=== PATIENT | female | born 1960 | race Caucasian/White ===

== ENCOUNTER → 2016-04-13 | Outpatient (CLI) | payer MEDICAID ==
[~2016-04-13] MED LIST: ACETAMINOPHEN TAB 500 MG TAB PO ONE; LORATADINE 10 MG TAB PO ONE; SODIUM CHLORIDE 0.9% 250 ML in EMPTY BAG 1 BAG IV PRN
[2016-04-13] MEDS: SODIUM CHLORIDE 0.9% 500 ML in EMPTY BAG 1 BAG IV PRN (11:41)
[2016-04-13 11:46] VITALS: RESP 16; TEMP 98.6
[2016-04-13 12:59] VITALS: PULSE 88
[2016-04-13 13:22] VITALS: BP 120/67
== END | disposition home or self-care (01) ==
LOC: PROCWHC3 11:16
PROVIDERS: ATTEND Internal Medicine Gastroenterology
DX: K51.90 Ulcerative colitis, unspecified, without complications (principal)
CPT/HCPCS: 96361; 96413; 96415; J1745

== ENCOUNTER → 2016-05-25 | Outpatient (CLI) | payer MEDICAID ==
[~2016-05-25] MED LIST changes: +SODIUM CHLORIDE 0.9% 500 ML in EMPTY BAG 1 BAG IV PRN
[2016-05-25 12:16] VITALS: TEMP 97.8
[2016-05-25 12:46] VITALS: PULSE 69
[2016-05-25 13:15] VITALS: BP 139/78; RESP 18
[2016-05-25 13:21] LABS: Basophils # (A) 0.1 k/uL (0-0.2); Basophils % (A) 1 %; CH 29.1; CHCM 33.2; Eosinophils # (A) 0.1 k/uL (0-0.7); Eosinophils % (A) 2 %; HCT 40.9 % (34.0-46.0); HDW 2.29; HGB 13.3 gm/dL (11.4-16.0); Luc % (Auto) 3; Lymphocytes # (A) 1.6 k/uL (1.0-4.8); Lymphocytes % (A) 23 %; MCH 28.6 pg (25.0-35.0); MCHC 32.5 g/dL (31.0-37.0); Mean Platelet Volume 6.2; Monocytes # (A) 0.4 k/uL (0-1.0); Monocytes % (A) 5 %; Neutrophils # (A) 4.5 k/uL (1.3-7.7); Neutrophils % (A) 66 %; RBC 4.65 m/uL (3.80-5.40); RDW 12.8 % (11.5-15.5); WBC 6.8 k/uL (3.8-10.6); WBC (Perox) 7.11
[2016-05-25 13:50] LABS: ALT 33 U/L (9-52); AST 29 U/L (14-36); Alkaline Phosphatase 83 U/L (38-126); Anion Gap 8 mmol/L; Blood Urea Nitrogen 15 mg/dL (7-17); C Reactive Protein 7.5 mg/L (<10.0); Calcium 10.1 mg/dL (8.4-10.2); Carbon Dioxide 31 mmol/L (22-30); Chloride 104 mmol/L (98-107); Glucose 82 mg/dL (74-99); Non-African American GFR(MDRD) >60 (>60 ml/min/1.73 sqM); Potassium 4.4 mmol/L (3.5-5.1); Sodium 143 mmol/L (137-145); Total Bilirubin 0.5 mg/dL (0.2-1.3); Total Protein 8.2 g/dL (6.3-8.2)
[2016-05-25 15:15] LABS: Erythrocyte Sedimentation Rate 10 mm/hr (0-20)
== END | disposition home or self-care (01) ==
LOC: PROCWHC3 11:17
PROVIDERS: ATTEND Internal Medicine Gastroenterology
DX: K51.90 Ulcerative colitis, unspecified, without complications (principal)
CPT/HCPCS: 80053; 85652; 85025; 86140; 96413; 96415; J1745

== ENCOUNTER → 2016-06-01 | Outpatient (CLI) | payer MEDICAID ==
--- NOTE | 2016-06-04 10:14 | MM ---
Reason for exam: screening (asymptomatic). Last mammogram was performed 3 years and 9 months ago. History: Took hormonal contraceptives for 8 years beginning at age 21. Physical Findings: A clinical breast exam by your physician is recommended on an annual basis and results should be correlated with mammographic findings. MG 3D Screening Mammo W/Cad Bilateral CC and MLO view(s) were taken. Prior study comparison: August 27, 2012, bilateral digital screening mammo w/CAD. September 30, 2008, bilateral digital screening mammogram. The breast tissue is extremely dense which could obscure a lesion on mammography. Benign calcifications bilaterally. No significant changes when compared with prior studies. ASSESSMENT: Benign, BI-RAD 2 RECOMMENDATION: Routine screening mammogram of both breasts in 1 year.
== END ==
LOC: RADMAMWWP 07:27
PROVIDERS: ATTEND Obstetrics & Gynecology
DX: Z12.31 Encounter for screening mammogram for malignant neoplasm of breast (principal)
CPT/HCPCS: 77063; G0202

== ENCOUNTER → 2016-06-06 | Outpatient (CLI) | payer MEDICAID ==
[2016-06-06 11:39] LABS: Partial Thromboplastin Time 25.2 sec (22.0-30.0); Prothrombin Time 9.9 sec (9.0-12.0)
== END | disposition home or self-care (01) ==
LOC: LABWHC1 11:02
PROVIDERS: ATTEND Internal Medicine Critical Care Medicine
DX: Z01.818 Encounter for other preprocedural examination (principal)
CPT/HCPCS: 36415; 85610; 85730

== ENCOUNTER → 2016-07-11 | Outpatient (CLI) | payer MEDICAID ==
[2016-07-11 07:54] VITALS: TEMP 98.3
[2016-07-11 09:47] VITALS: BP 132/96; PULSE 76; RESP 20
== END | disposition home or self-care (01) ==
LOC: PROCWHC3 07:31
PROVIDERS: ATTEND Internal Medicine Gastroenterology
DX: K51.90 Ulcerative colitis, unspecified, without complications (principal)
CPT/HCPCS: 96413; 96415; J1745

== ENCOUNTER → 2016-08-23 | Outpatient (CLI) | payer MEDICAID ==
[2016-08-23 12:31] VITALS: TEMP 98.6
[2016-08-23 12:45] LABS: Basophils % (A) 1 %; CH 29.9; Eosinophils # (A) 0.1 k/uL (0-0.7); Eosinophils % (A) 2 %; HCT 39.8 % (34.0-46.0); HDW 2.19; HGB 13.1 gm/dL (11.4-16.0); Luc # (Auto) 0.17; Luc % (Auto) 2; Lymphocytes # (A) 1.4 k/uL (1.0-4.8); Lymphocytes % (A) 16 %; MCV 90.9 fL (80.0-100.0); Mean Platelet Volume 6.2; Monocytes # (A) 0.5 k/uL (0-1.0); Monocytes % (A) 6 %; Neutrophils # (A) 6.1 k/uL (1.3-7.7); Neutrophils % (A) 73 %; RBC 4.38 m/uL (3.80-5.40); RDW 13.9 % (11.5-15.5); WBC 8.3 k/uL (3.8-10.6); WBC (Perox) 8.44
[2016-08-23 13:10] LABS: ALT 26 U/L (9-52); AST 25 U/L (14-36); Alkaline Phosphatase 87 U/L (38-126); Anion Gap 9 mmol/L; Blood Urea Nitrogen 15 mg/dL (7-17); C Reactive Protein <5.0 mg/L (<10.0); Calcium 9.9 mg/dL (8.4-10.2); Carbon Dioxide 27 mmol/L (22-30); Chloride 104 mmol/L (98-107); Glucose 92 mg/dL (74-99); Non-African American GFR(MDRD) >60 (>60 ml/min/1.73 sqM); Potassium 4.2 mmol/L (3.5-5.1); Sodium 140 mmol/L (137-145); Total Bilirubin 0.6 mg/dL (0.2-1.3); Total Protein 7.6 g/dL (6.3-8.2)
[2016-08-23 13:26] VITALS: RESP 20
[2016-08-23 13:53] VITALS: BP 138/76; PULSE 80
[2016-08-23 14:21] LABS: Erythrocyte Sedimentation Rate 13 mm/hr (0-20)
== END | disposition home or self-care (01) ==
LOC: PROCWHC3 12:03
PROVIDERS: ATTEND Internal Medicine Gastroenterology
DX: K51.90 Ulcerative colitis, unspecified, without complications (principal)
CPT/HCPCS: 80053; 85652; 85025; 86140; 96413; 96415; J1745

== ENCOUNTER → 2016-10-04 | Outpatient (CLI) | payer MEDICAID ==
[2016-10-04 07:46] VITALS: TEMP 98.4
[2016-10-04 08:16] VITALS: RESP 18
[2016-10-04 09:06] VITALS: BP 133/66; PULSE 67
[2016-10-04 12:06] LABS: Hemoglobin A1C 5.6 % (4.2-6.1)
[2016-10-04 17:30] LABS: Sex Hormone Binding Globulin 91.2 nmol/L (18.0-166.0)
== END ==
LOC: PROCWHC3 07:20
PROVIDERS: ATTEND Internal Medicine Gastroenterology
DX: Z51.11 Encounter for antineoplastic chemotherapy (principal); K51.90 Ulcerative colitis, unspecified, without complications; R53.83 Other fatigue; E55.9 Vitamin D deficiency, unspecified; N95.1 Menopausal and female climacteric states; E34.9 Endocrine disorder, unspecified
CPT/HCPCS: 84481; 80061; 84443; 83001; 83036; 82670; 84436; 84270; 82040; 84403; 96413; 96415; 36415; J1745

== ENCOUNTER → 2016-11-15 | Outpatient (CLI) | payer MEDICAID ==
[~2016-11-15] MED LIST changes: +ACETAMINOPHEN TAB 500 MG TAB PO NR; -ACETAMINOPHEN TAB 500 MG TAB PO ONE; +LORATADINE 10 MG TAB PO NR; -LORATADINE 10 MG TAB PO ONE; -SODIUM CHLORIDE 0.9% 250 ML in EMPTY BAG 1 BAG IV PRN
[2016-11-15 11:23] VITALS: RESP 16; TEMP 99.3
[2016-11-15 11:58] LABS: Basophils # (A) 0.1 k/uL (0-0.2); Basophils % (A) 1 %; CH 29.2; CHCM 33.8; Eosinophils # (A) 0.2 k/uL (0-0.7); Eosinophils % (A) 3 %; HCT 41.2 % (34.0-46.0); HDW 2.25; HGB 14.1 gm/dL (11.4-16.0); Luc # (Auto) 0.22; Luc % (Auto) 3; Lymphocytes # (A) 1.6 k/uL (1.0-4.8); Lymphocytes % (A) 23 %; MCH 29.8 pg (25.0-35.0); MCHC 34.3 g/dL (31.0-37.0); Mean Platelet Volume 6.2; Monocytes # (A) 0.4 k/uL (0-1.0); Monocytes % (A) 6 %; Neutrophils # (A) 4.5 k/uL (1.3-7.7); Neutrophils % (A) 64 %; RBC 4.73 m/uL (3.80-5.40); RDW 13.7 % (11.5-15.5); WBC (Perox) 7.04
[2016-11-15 12:39] LABS: ALT 31 U/L (9-52); AST 25 U/L (14-36); Alkaline Phosphatase 88 U/L (38-126); Anion Gap 10 mmol/L; Blood Urea Nitrogen 20 mg/dL (7-17); C Reactive Protein <5.0 mg/L (<10.0); Calcium 9.9 mg/dL (8.4-10.2); Carbon Dioxide 28 mmol/L (22-30); Chloride 103 mmol/L (98-107); Glucose 95 mg/dL (74-99); Non-African American GFR(MDRD) >60 (>60 ml/min/1.73 sqM); Potassium 4.4 mmol/L (3.5-5.1); Sodium 141 mmol/L (137-145); Total Bilirubin 0.5 mg/dL (0.2-1.3); Total Protein 7.8 g/dL (6.3-8.2)
[2016-11-15 13:21] LABS: Erythrocyte Sedimentation Rate 15 mm/hr (0-20)
[2016-11-15 14:09] VITALS: BP 123/86; PULSE 70
== END | disposition home or self-care (01) ==
LOC: PROCWHC3 11:08
PROVIDERS: ATTEND Internal Medicine Gastroenterology
DX: K51.90 Ulcerative colitis, unspecified, without complications (principal); K51.011 Ulcerative (chronic) pancolitis with rectal bleeding
CPT/HCPCS: 80053; 85652; 85025; 86140; 87324; 83993; 96413; 96415; J1745

== ENCOUNTER → 2017-02-14 | Outpatient (CLI) | payer MEDICAID ==
[~2017-02-14] MED LIST changes: -ACETAMINOPHEN TAB 500 MG TAB PO NR; +ACETAMINOPHEN TAB 500 MG TAB PO ONE; +INFLIXIMAB-DYYB 500 MG in SODIUM CHLORIDE 0.9% 250 ML IV ONE; -LORATADINE 10 MG TAB PO NR; +LORATADINE 10 MG TAB PO ONE
[2017-02-14 12:21] VITALS: TEMP 98.3
[2017-02-14 12:47] LABS: Basophils # (A) 0.1 k/uL (0-0.2); Basophils % (A) 1 %; CH 28.9; CHCM 33.3; Eosinophils # (A) 0.1 k/uL (0-0.7); Eosinophils % (A) 1 %; HCT 41.9 % (34.0-46.0); HDW 2.27; HGB 13.8 gm/dL (11.4-16.0); Luc # (Auto) 0.19; Luc % (Auto) 3; Lymphocytes # (A) 1.5 k/uL (1.0-4.8); Lymphocytes % (A) 25 %; MCH 28.7 pg (25.0-35.0); MCV 87.1 fL (80.0-100.0); Mean Platelet Volume 5.9; Monocytes # (A) 0.4 k/uL (0-1.0); Monocytes % (A) 7 %; Neutrophils # (A) 3.9 k/uL (1.3-7.7); Neutrophils % (A) 64 %; RBC 4.82 m/uL (3.80-5.40); WBC 6.1 k/uL (3.8-10.6); WBC (Perox) 6.18
[2017-02-14 13:06] LABS: ALT 30 U/L (9-52); AST 29 U/L (14-36); Alkaline Phosphatase 64 U/L (38-126); Anion Gap 9 mmol/L; Blood Urea Nitrogen 20 mg/dL (7-17); Carbon Dioxide 28 mmol/L (22-30); Chloride 105 mmol/L (98-107); Glucose 99 mg/dL (74-99); Non-African American GFR(MDRD) 56 (>60 ml/min/1.73 sqM); Potassium 4.4 mmol/L (3.5-5.1); Sodium 142 mmol/L (137-145); Total Bilirubin 0.5 mg/dL (0.2-1.3); Total Protein 8.2 g/dL (6.3-8.2)
[2017-02-14 13:19] LABS: C Reactive Protein <5.0 mg/L (<10.0)
[2017-02-14 13:20] VITALS: RESP 16
[2017-02-14 13:34] VITALS: BP 134/75; PULSE 82
[2017-02-14 15:38] LABS: Erythrocyte Sedimentation Rate 8 mm/hr (0-20)
== END | disposition home or self-care (01) ==
LOC: PROCWHC3 11:46
PROVIDERS: ATTEND Internal Medicine Gastroenterology
DX: K51.90 Ulcerative colitis, unspecified, without complications (principal)
CPT/HCPCS: 80053; 85652; 85025; 86140; 96413; 96415; 36415; Q5102

== ENCOUNTER → 2017-03-29 | Outpatient (CLI) | payer MEDICAID ==
[2017-03-29 08:18] VITALS: RESP 16; TEMP 98
[2017-03-29 09:29] VITALS: BP 152/76; PULSE 71
== END | disposition home or self-care (01) ==
LOC: PROCWHC3 07:49
PROVIDERS: ATTEND Internal Medicine Gastroenterology
DX: K51.90 Ulcerative colitis, unspecified, without complications (principal)
CPT/HCPCS: 96365; Q5102

== ENCOUNTER → 2017-05-10 | Outpatient (CLI) | payer MEDICAID ==
[2017-05-10 07:45] VITALS: TEMP 99
[2017-05-10 08:05] LABS: HCT 40.1 % (34.0-46.0); HGB 12.4 gm/dL (11.4-16.0); MCH 27.5 pg (25.0-35.0); MCV 88.8 fL (80.0-100.0); Mean Platelet Volume 6.3; Platelet Count 397 k/uL (150-450); RBC 4.52 m/uL (3.80-5.40); RDW 13.1 % (11.5-15.5); WBC 5.9 k/uL (3.8-10.6)
[2017-05-10 08:18] LABS: ALT 26 U/L (9-52); AST 30 U/L (14-36); Albumin 4.4 g/dL (3.5-5.0); Alkaline Phosphatase 61 U/L (38-126); Anion Gap 10 mmol/L; Blood Urea Nitrogen 23 mg/dL (7-17); Calcium 9.4 mg/dL (8.4-10.2); Carbon Dioxide 26 mmol/L (22-30); Chloride 104 mmol/L (98-107); Glucose 104 mg/dL (74-99); Potassium 4.3 mmol/L (3.5-5.1); Sodium 140 mmol/L (137-145); Total Bilirubin 0.5 mg/dL (0.2-1.3); Total Protein 7.6 g/dL (6.3-8.2)
[2017-05-10 09:36] VITALS: BP 134/74; PULSE 69; RESP 18
== END ==
LOC: PROCWHC3 07:25
PROVIDERS: ATTEND Internal Medicine Gastroenterology
DX: K51.90 Ulcerative colitis, unspecified, without complications (principal)
CPT/HCPCS: 80053; 85027; 96413; 96415; 36415; Q5102; 80299

== ENCOUNTER → 2017-05-21 | Outpatient (CLI) | payer MEDICAID ==
[2017-05-21 16:06] LABS: T4, Free (Free Thyroxine) 0.74 ng/dL (0.78-2.19)
== END | disposition home or self-care (01) ==
LOC: LABWHC1 15:06
PROVIDERS: ATTEND Obstetrics & Gynecology
DX: E07.9 Disorder of thyroid, unspecified (principal); K51.00 Ulcerative (chronic) pancolitis without complications; Z78.0 Asymptomatic menopausal state
CPT/HCPCS: 36415; 82670; 83001; 83993; 84403; 84439; 84443

== ENCOUNTER → 2017-06-21 | Outpatient (CLI) | payer MEDICAID ==
[2017-06-21 08:07] VITALS: RESP 16; TEMP 97.6
[2017-06-21 10:00] VITALS: BP 113/73; PULSE 68
== END | disposition home or self-care (01) ==
LOC: PROCWHC3 07:21
PROVIDERS: ATTEND Internal Medicine Gastroenterology
DX: K51.90 Ulcerative colitis, unspecified, without complications (principal)
CPT/HCPCS: 96413; 96415; Q5103

== ENCOUNTER → 2017-08-08 | Outpatient (CLI) | payer MEDICAID ==
[~2017-08-08] MED LIST changes: -ACETAMINOPHEN TAB 500 MG TAB PO ONE; +INFLIXIMAB-DYYB 500 MG in SODIUM CHLORIDE 0.9% 250 ML IV NR; -INFLIXIMAB-DYYB 500 MG in SODIUM CHLORIDE 0.9% 250 ML IV ONE; -LORATADINE 10 MG TAB PO ONE
[2017-08-08 11:55] VITALS: RESP 16
[2017-08-08 12:11] LABS: Basophils # (A) 0.1 k/uL (0-0.2); Basophils % (A) 1 %; Eosinophils # (A) 0.2 k/uL (0-0.7); Eosinophils % (A) 3 %; HCT 38.2 % (34.0-46.0); HGB 12.9 gm/dL (11.4-16.0); Lymphocytes # (A) 1.7 k/uL (1.0-4.8); Lymphocytes % (A) 29 %; MCH 29.2 pg (25.0-35.0); MCHC 33.9 g/dL (31.0-37.0); MCV 86.1 fL (80.0-100.0); Mean Platelet Volume 6.1; Monocytes # (A) 0.4 k/uL (0-1.0); Monocytes % (A) 7 %; Neutrophils # (A) 3.3 k/uL (1.3-7.7); Neutrophils % (A) 58 %; Platelet Count 439 k/uL (150-450); RBC 4.44 m/uL (3.80-5.40); RDW 13.5 % (11.5-15.5); WBC 5.7 k/uL (3.8-10.6)
[2017-08-08 12:19] LABS: ALT 50 U/L (9-52); AST 45 U/L (14-36); Albumin 4.9 g/dL (3.5-5.0); Alkaline Phosphatase 56 U/L (38-126); Anion Gap 13 mmol/L; Bilirubin, Delta 0.2 mg/dL (0.0-0.2); Bilirubin,Unconjugated 0.3 mg/dL (0.0-1.1); Blood Urea Nitrogen 20 mg/dL (7-17); C Reactive Protein <5.0 mg/L (<10.0); Calcium 10.3 mg/dL (8.4-10.2); Carbon Dioxide 29 mmol/L (22-30); Chloride 99 mmol/L (98-107); Glucose 103 mg/dL (74-99); Sodium 141 mmol/L (137-145); Total Bilirubin 0.5 mg/dL (0.2-1.3); Total Protein 7.9 g/dL (6.3-8.2)
[2017-08-08 12:21] VITALS: PULSE 74
[2017-08-08 12:41] VITALS: BP 134/66
[2017-08-08 13:35] LABS: Creatine Kinase 199 U/L (30-135); Erythrocyte Sedimentation Rate 8 mm/hr (0-20)
[2017-08-08 16:57] LABS: Cyclic Citrullinated Pep IgG NEGATIVE (NEGATIVE)
[2017-08-08 20:07] LABS: Cholesterol 247 mg/dL (<200); HDL Cholesterol 93 mg/dL (40-60); LDL Cholesterol,Calculated 143 mg/dL (0-99); Triglycerides 54 mg/dL (<150)
== END | disposition home or self-care (01) ==
LOC: PROCWHC3 10:31
PROVIDERS: ATTEND Internal Medicine Gastroenterology
DX: E55.9 Vitamin D deficiency, unspecified (principal); K51.90 Ulcerative colitis, unspecified, without complications; Z78.0 Asymptomatic menopausal state
CPT/HCPCS: 80061; 80053; 80076; 85652; 82085; 82550; 82670; 85025; 86140; 86431; 82306; 86038; 84403; 86235; 86200; 96413; 96415; 36415; Q5103

== ENCOUNTER → 2018-01-29 | Outpatient (CLI) | payer MEDICAID ==
--- NOTE | 2018-01-30 10:54 | BD ---
EXAMINATION TYPE: Axial Bone Density DATE OF EXAM: 01/29/2018 COMPARISON: NONE CLINICAL HISTORY: post menopausal Height: 5'5 Weight: 158 FRAX RISK QUESTIONS: Secondary Osteoporosis: RISK FACTORS HISTORY OF: Diet low in dairy products/other sources of calcium: y Postmenopausal woman: y Take estrogen and/or progesterone medications: y How lon year MEDICATIONS: Additional Medications: hypertension, ulcerative colitis Additional History: EXAM MEASUREMENTS: Bone mineral densitometry was performed using the [employer] System. Bone mineral density as measured about the Lumbar spine is: ----- L1-L4(G/cm2): 1.423 T Score Values are as follows: ----- L2: 1.7 ----- L3: 2.6 ----- L4: 2.0 ----- L1-L4:2.0 Bone mineral density about the R hip (g/cm2): 1.046 Bone mineral density about the L hip (g/cm2): 1.091 T Score values are as follows: -----R Neck: 0.1 -----L Neck: 0.4 -----R Total: 1.2 -----L Total: 1.9 IMPRESSION: No evidence for osteoporosis or osteopenia NOTE: T-SCORE=SD OF THE YOUNG ADULT MEAN.
--- NOTE | 2018-01-30 13:26 | MM ---
Reason for exam: screening (asymptomatic). Last mammogram was performed 1 year and 8 months ago. History: Retro-pectoral implants in both breasts, June 2016. Took hormonal contraceptives for 8 years beginning at age 21. Taking other hormone for 1 year. MG 3D Screen Mammo Imp/Cad Bilateral CC, MLO, and ID view(s) were taken. Prior study comparison: June 01, 2016, bilateral MG 3d screening mammo w/cad. August 27, 2012, bilateral digital screening mammo w/CAD. The breast tissue is heterogeneously dense. This may lower the sensitivity of mammography. Stable benign calcification. Bilateral implants are intact. No significant new finding since most recent study. ASSESSMENT: Benign, BI-RAD 2 RECOMMENDATION: Routine screening mammogram of both breasts in 1 year.
== END ==
LOC: RADMAMWWP 15:24
PROVIDERS: ATTEND Obstetrics & Gynecology
DX: Z12.31 Encounter for screening mammogram for malignant neoplasm of breast (principal); N95.1 Menopausal and female climacteric states
CPT/HCPCS: 77063; 77067; 77080

== ENCOUNTER → 2018-11-03 | Outpatient (CLI) | payer MEDICAID ==
[2018-11-04 15:14] LABS: LOG HCV IU/mL <1.08 (<1.08)
== END | disposition home or self-care (01) ==
LOC: LABWHC1 09:02
PROVIDERS: ATTEND Internal Medicine Infectious Disease
DX: Z51.81 Encounter for therapeutic drug level monitoring (principal); Z79.899 Other long term (current) drug therapy; K51.90 Ulcerative colitis, unspecified, without complications
CPT/HCPCS: 36415; 86480; 87522

== ENCOUNTER → 2019-02-02 | Outpatient (CLI) | payer MEDICAID ==
[2019-02-02 19:01] LABS: Estradiol 79.8 pg/mL; Follicle Stimulating Hormone 23.8 mIU/mL
[2019-02-02 19:55] LABS: Hemoglobin A1C 5.4 % (4.0-6.0)
== END | disposition home or self-care (01) ==
LOC: LABWHC1 11:01
PROVIDERS: ATTEND Obstetrics & Gynecology
DX: E03.9 Hypothyroidism, unspecified (principal); E34.52 Partial androgen insensitivity syndrome; R53.83 Other fatigue; N95.1 Menopausal and female climacteric states; R61 Generalized hyperhidrosis
CPT/HCPCS: 36415; 82306; 82607; 82670; 83001; 83036; 84403; 84436; 84443; 84481

== ENCOUNTER → 2019-04-08 | Outpatient (CLI) | payer MEDICAID ==
--- NOTE | 2019-04-09 13:25 | MM ---
Reason for exam: screening (asymptomatic). Last mammogram was performed 1 year and 2 months ago. History: Patient is postmenopausal. Retro-pectoral implants in both breasts, June 2016. Took hormonal contraceptives for 8 years beginning at age 21. Taking other hormone for 1 year. Physical Findings: A clinical breast exam by your physician is recommended on an annual basis and results should be correlated with mammographic findings. MG 3D Screen Mammo Imp/Cad Bilateral CC and MLO view(s) were taken. Prior study comparison: January 29, 2018, bilateral MG 3d screen mammo imp/cad. June 01, 2016, bilateral MG 3d screening mammo w/cad. No significant changes when compared with prior studies. ASSESSMENT: Benign, BI-RAD 2 RECOMMENDATION: Routine screening mammogram of both breasts in 1 year.
== END | disposition home or self-care (01) ==
LOC: RADMAMWWP 06:56
PROVIDERS: ATTEND Obstetrics & Gynecology
DX: Z12.31 Encounter for screening mammogram for malignant neoplasm of breast (principal); Z98.82 Breast implant status
CPT/HCPCS: 77063; 77067

== ENCOUNTER 2020-05-04 09:16 | Day surgery (SDC) | payer MEDICAID ==
[2020-05-03 11:26] VITALS: BMI 25.9
[~2020-05-04 09:16] MED LIST changes: -INFLIXIMAB-DYYB 500 MG in SODIUM CHLORIDE 0.9% 250 ML IV NR; +LIDOCAINE 1% (10MG/ML) FOR IV START INTRADERMA PRN; -SODIUM CHLORIDE 0.9% 500 ML in EMPTY BAG 1 BAG IV PRN
[2020-05-04 09:51] VITALS: TEMP 98.9
[2020-05-04] MEDS ORDERED: ONDANSETRON 4 MG/2 ML VIAL IVP ONE (09:52)
[2020-05-04] MEDS ORDERED: LACTATED RINGERS 1,000 ML IV ONE (09:52)
[2020-05-04] MEDS ORDERED: ONDANSETRON 4 MG/2 ML VIAL ONE (09:54)
[2020-05-04] MEDS ORDERED: PROPOFOL 10 MG/ML 20 ML VIAL IV ONE (10:22)
--- NOTE | 2020-05-04 10:38 | P.PCN ---
Date of Procedure: 05/04/20 Procedure(s) Performed: BRIEF HISTORY: Patient is a 59-year-old pleasant white female scheduled for surveillance colonoscopy as a part of evaluation of long-standing history of ulcerative colitis diagnosed in . Currently is maintained on Entyvio and is in clinical remission.. PROCEDURE PERFORMED: Colonoscopy with random biopsies . PREOPERATIVE DIAGNOSIS: Long-standing history of ulcerative colitis IV sedation per Anesthesia. PROCEDURE: After informed consent was obtained, the patient, was brought into the endoscopy unit. IV sedation was administered by Anesthesia under continuous monitoring. Digital rectal examination was normal. Initially the Olympus CF-160 flexible video colonoscope was then inserted in the rectum, gradually advanced into the cecum without any difficulty. Careful examination was performed as the scope was gradually being withdrawn. Ileocecal valve and the appendiceal orifice were visualized and appeared normal. Prep was excellent. Mucosa of the cecum, ascending colon, transverse colon, descending colon, sigmoid colon, and rectum no evidence of active colitis or colorectal neoplasia. Random biopsies were done from the cecum to rectum at every 10 cm into well.. Retroflexion was performed in the rectum and no lesions were seen. The patient tolerated the pro cedure well. IMPRESSION: No active colitis or colorectal neoplasia Mild mucosal scarring with loss of haustrations noted in the descending colon and distal transverse colon RECOMMENDATIONS: Findings of this examination were discussed with the patient . She was advised to follow with the biopsy results. If the biopsies do not have any evidence of dysplasia, she can have a repeat colonoscopy every 1-2 years.
[2020-05-04 10:55] VITALS: BP 144/80; PULSE 71; RESP 17
== END 2020-05-04 12:00 | disposition home or self-care (01) ==
LOC: ORWHC2ENDO 09:16
PROVIDERS: ATTEND Internal Medicine Gastroenterology
DX: Z12.11 Encounter for screening for malignant neoplasm of colon (principal); K51.90 Ulcerative colitis, unspecified, without complications; I10 Essential (primary) hypertension; E07.9 Disorder of thyroid, unspecified; Z88.5 Allergy status to narcotic agent; Z79.899 Other long term (current) drug therapy; Z79.890 Hormone replacement therapy; Z98.890 Other specified postprocedural states; Z90.89 Acquired absence of other organs; Z87.898 Personal history of other specified conditions; Z84.89 Family history of other specified conditions
CPT/HCPCS: 88305; 45380; J2405; J2704

== ENCOUNTER → 2021-01-02 | Outpatient (CLI) | payer MEDICAID ==
[2021-01-02 15:08] LABS: Appearance,Urine Clear (Clear); Bilirubin,Urine Negative (Negative); Blood,Urine Negative (Negative); Color,Urine Yellow; Glucose,Urine (UA) Negative (Negative); Ketones,Urine Negative (Negative); Leukocyte Esterase,Urine Negative (Negative); Nitrite,Urine Negative (Negative); PH, Urine 6.5 (5.0-8.0); Protein,Urine Negative (Negative); Specific Gravity,Urine 1.023 (1.001-1.035); Urobilinogen,Urine <2.0 mg/dL (<2.0)
[2021-01-02 15:14] LABS: Partial Thromboplastin Time 24.4 sec (22.0-30.0); Prothrombin Time 10.4 sec (9.0-12.0)
[2021-01-02 15:15] LABS: Albumin 4.7 g/dL (3.5-5.0); Calcium 9.9 mg/dL (8.4-10.2); Potassium 4.2 mmol/L (3.5-5.1); Total Bilirubin 0.5 mg/dL (0.2-1.3); Total Protein 7.9 g/dL (6.3-8.2)
[2021-01-02 15:28] LABS: HCT 40.3 % (34.0-46.0); MCHC 32.3 g/dL (31.0-37.0); MCV 89.5 fL (80.0-100.0); Mean Platelet Volume 6.4; Platelet Count 449 k/uL (150-450); RBC 4.51 m/uL (3.80-5.40); RDW 13.7 % (11.5-15.5); WBC 9.1 k/uL (3.8-10.6)
== END | disposition home or self-care (01) ==
LOC: LABPAT 14:13
PROVIDERS: ATTEND Orthopaedic Surgery
DX: Z01.812 Encounter for preprocedural laboratory examination (principal)
CPT/HCPCS: 36415; 80053; 81003; 85027; 85610; 85730; 87070

== ENCOUNTER 2021-01-10 05:42 | Day surgery (SDC) | payer MEDICAID ==
[2021-01-05 15:25] VITALS: BMI 25.9
[~2021-01-10 05:42] MED LIST changes: +ACETAMINOPHEN TAB 500 MG TAB PO PRN; +GABAPENTIN 300 MG CAP PO PRN; -LIDOCAINE 1% (10MG/ML) FOR IV START INTRADERMA PRN; +MELOXICAM 7.5 MG TAB PO PRN; +ROPIVACAINE/EPI/CLONIDINE/KET 50 ML SYRINGE MISCELLANE PRN; +TRANEXAMIC ACID 1,000 MG in SODIUM CHLORIDE 0.9% 100 ML IVPB PRN
[2021-01-10] MEDS ORDERED: LIDOCAINE 1% (10MG/ML) FOR IV START INTRADERMA PRN (05:49)
[2021-01-10] MEDS ORDERED: DEXAMETHASONE SOD PHOSPHATE 4 MG/ML 1 ML VIAL IV ONE (05:49)
[2021-01-10] MEDS: LACTATED RINGERS 1,000 ML IV SCH ×3 (06:20→13:46)
[2021-01-10] MEDS: ONDANSETRON 4 MG/2 ML VIAL IVP ONE ×2 (06:20→12:37)
[2021-01-10] MEDS ORDERED: MIDAZOLAM 2 MG/2 ML VIAL IVP ONE (06:48)
[2021-01-10] MEDS ORDERED: MIDAZOLAM 2 MG/2 ML VIAL IV ONE (06:50)
[2021-01-10] MEDS ORDERED: HYDROmorphone 0.2 MG/1 ML SYRINGE IVP PRN (06:58)
[2021-01-10] MEDS ORDERED: HYDROmorphone 0.5 MG/0.5 ML SYRINGE IVP PRN (06:58)
[2021-01-10] MEDS ORDERED: HYDROmorphone 1 MG/ML 1 ML SYRINGE IVP PRN (06:58)
[2021-01-10] MEDS ORDERED: NALOXONE 0.4 MG/ML 1 ML VIAL IV PRN (06:58)
[2021-01-10] MEDS ORDERED: HYDROcodone/APAP 7.5-325MG 1 EACH TAB PO PRN ×2 (06:59)
[2021-01-10] MEDS ORDERED: SODIUM CHLORIDE 0.9% 1,000 ML IV SCH (07:00)
[2021-01-10] MEDS ORDERED: MIDAZOLAM 2 MG/2 ML VIAL ONE (07:03)
[2021-01-10] MEDS ORDERED: LIDOCAINE 1% INJ 10MG/ML (20 ML MDV) ONE (07:03)
[2021-01-10] MEDS ORDERED: ROCURONIUM 10 MG/ML (5 ML VIAL) IV ONE (07:03)
[2021-01-10] MEDS ORDERED: SODIUM CHLORIDE 0.9% 100 ML BAG ONE (07:03)
[2021-01-10] MEDS ORDERED: fentaNYL (PF) 50 MCG/ML 2 ML AMP ONE (07:03)
[2021-01-10] MEDS ORDERED: SUCCINYLCHOLINE CHLORIDE 100 MG/5 ML SYR IV ONE (07:03)
[2021-01-10] MEDS ORDERED: HYDROmorphone (PF) 1 MG/ML ONE (07:03)
[2021-01-10] MEDS ORDERED: PROPOFOL 10 MG/ML 20 ML VIAL IV ONE (07:03)
[2021-01-10] MEDS ORDERED: diphenhydrAMINE 50 MG/ML 1 ML VIAL ONE (07:03)
[2021-01-10] MEDS ORDERED: ROPIVACAINE 5 MG/ML 30 ML VIAL ONE (07:03)
[2021-01-10] MEDS ORDERED: TRANEXAMIC ACID 1,000 MG/10 ML VIAL ONE (07:03)
[2021-01-10] MEDS ORDERED: ePHEDrine SULFATE/0.9% NACL/PF 50 MG/5 ML SYRINGE IV ONE (07:03)
[2021-01-10] MEDS ORDERED: ceFAZolin 1,000 MG in SODIUM CHLORIDE 0.9% 1,000 ML IRRIGATION ONE (07:06)
[2021-01-10] MEDS ORDERED: LACTATED RINGERS 1,000 ML IV ONE (08:05)
--- NOTE | 2021-01-10 08:30 | P.OP ---
Date of Procedure: 01/10/21 Preoperative Diagnosis: Severe Osteoarthritis right knee Postoperative Diagnosis: Severe osteoarthritis right knee Procedure(s) Performed: Right total knee arthroplasty using [employer] patient specific guides Implants: Daina & Nephew Journey II CR Oxinium cruciate retaining femoral component size 5, right Diana & Nephew Journey nonporous tibial baseplate size 4, right Diana [employer] Nephew Journey II, XLPE CR articular insert, size10 mm, Size 3-4, right Diana [employer] Nephew Journey Rajni II resurfacing patellar component, oval, 32 mm All components were cemented using Palacos R bone cement The articulation is Oxinium on polyethylene [employer] patient specific guides Anesthesia: GETA Surgeon: Andrea Sanderson Animal Ride Attendant #1: Desiree Robison Estimated Blood Loss (ml): 25 Pathology: none sent (Bone and cartilage) Condition: stable Disposition: PACU Indications for Procedure: After failure of conservative treatment we discussed the surgical and nonsurgical treatment options at length. Patient wishes to proceed with a total knee arthroplasty. Complications specific to this procedure were discussed at length, including but not limited to infection, bleeding, stiffness, and nerve injury. Covid-19 was also discussed at length with the patient, and they are aware of the current policies and procedures. The patient was given the option of delaying surgery, but they elect to proceed knowing these risks. Patient is aware of all these complications and informed consent was obtained Operative Findings: The operative findings are consistent with severe osteoarthritis of the right knee Description of Procedure: Patient was seen in the preoperative area and the consent was reviewed and the operative site was marked with a skin marker. The patient verified the procedure and the operative site. An adductor canal pain catheter and an iPACK block was placed by anesthesia in the preoperative area. The patient was then brought to the operating room and given preoperative antibiotics intravenously. A gram of transexamic acid was given intravenously. A general anesthetic was administered by the anesthesia department. A tourniquet was placed on the upper thigh and the lower extremity was prepped with chlorhexidine and draped in usual sterile fashion. A universal timeout was then performed which confirmed the patient's name, surgical site, ALLERGIES, and consent. The lower extremity was then exsanguinated and tourniquet was inflated to 250 mmHg. A standard anterior midline approach to the knee was performed. The skin and subcutaneous tissue were sharply dissected down to the patellar tendon. A medial parapatellar arthrotomy was then performed. The knee was then extended, the patellar was everted, and the knee was again flexed. The infra-patellar fat pad was removed in order to enhance exposure. The anterior horns of both menisci were excised, and a release was performed to the posterior medial aspect of the knee. On gross visual inspection, there was complete loss of articular cartilage in the medial and patellofemoral joint spaces. There was also significant cartilage damage in the lateral compartment. There were multiple periarticular osteophytes globally about the knee. The patient specific guide was placed on the distal femur, and pinned in place. Using the patient specific guide, the distal femoral cut was performed. The cutting block was then removed and the cut was checked for symmetry. The spikes of the femoral block was then placed into the predrilled holes, and malleted into place. Two 45 mm pins were then placed into the fixation holes on the cutting block. An bora wing was then used to ensure there would be no notching with the anterior cut. The anterior condyles were cut without notching. The anterior chord cut was then performed, followed by the posterior cut, posterior chamfer cut, and the anterior chamfer cut. The collateral ligaments were protected during the entire process. The cutting block was then removed. Any remaining bone and osteophytes were removed from the femur with a Rominger. The femoral canal was plugged with autologous bone. Attention was then directed to the tibia. The remaining ACL was removed with a Ronguer, and the tibia was then gently subluxed forward with a large bent knee retractor. Any remaining menisci were excised. The posterior lateral corner was cauterized in order to coagulate the lateral geniculate artery. The patient specific guide for the tibia was then placed and was held in place with pins. Pinholes were then placed for rotation of the tibial component as well. Proximal tibia was then cut and sized. The femoral trial was placed. A narrow saw blade was then used to remove the anterior intracondylar femoral bone. The CR notch trial was then placed. The tibial trial was placed with the appropriate-sized insert. The knee was able to fully extend and flex to 130 and was stable throughout all range of motion. The knee was then extended and the patella was everted. Patella was then measured, and then using an osteotomy guide, the patella was cut at the appropriate level. The patella was then measured and drilled and the patella trial was then placed. The knee was then taken through range of motion with the patella trial and the patella tracked normally using the no thumbs technique.. The knee was then extended patella trial was then removed and the patella was everted. Knee was then flexed and lug holes were drilled through the femoral trial and the femoral trial was then removed. The tibial was then re-exposed, and the tibial broach guide was then pinned in place after it was set for the appropriate rotation to allow for the most coverage without overhang. The tibia was then reamed and broached. The cut surfaces of bone were then irrigated with pulsatile lavage. The knee was also irrigated with Irrisept solution. The components were then opened, the cement was mixed, and the components were then cemented in place. The cement was allowed to harden with the knee in full extension. After the cemented hardened. The tourniquet was released, and hemostasis was obtained. A second gram of transexamic acid was given intravenously. The knee was again irrigated. The knee was again taken through range of motion and found to be stable throughout all range of motion of 0-130, and the patella tracked normally. The fascia was then closed with 0 Vicryl followed by #2 strata fix suture. The subcutaneous tissue was closed with 3-0 Vicryl and 3-0 strata fix. Exofin glue was used for the skin and placed with the knee in flexion. After the glue had dried, and Optafoam silver impregnated dressing was applied. The patient was then transferred to recovery room in stable condition. The marketing operations assistant TRACEY Rockwell was required due the complexity surgery and the need for a skilled cleaner assistant. She assisted in positioning, draping, retraction, and closure of the wound.
[2021-01-10] MEDS ORDERED: ROPIVACAINE 0.2%-NS ON-Q PUMP 1,090 MG, EMPTY PAIN BALL 1 EACH MISCELLANE PRN (08:44)
[2021-01-10] MEDS: HYDROmorphone 0.5 MG/0.5 ML SYRINGE IVP PRN ×2 (08:55→09:11)
[2021-01-10 09:04] VITALS: TEMP 97.5
--- NOTE | 2021-01-10 09:57 | XR ---
EXAMINATION TYPE: XR knee limited RT DATE OF EXAM: 01/10/2021 CLINICAL HISTORY: Right knee pain and arthritis status post total knee replacement. TECHNIQUE: Portable AP and crosstable lateral views of the right knee are obtained immediately posto peratively. COMPARISON: None FINDINGS: Metallic hardware from total right knee arthroplasty is seen and appears satisfactory in a lignment and position. There is evidence of recent surgery with diffuse subcutaneous gas and soft ti ssue swelling noted. IMPRESSION: METALLIC HARDWARE FROM TOTAL RIGHT KNEE ARTHROPLASTY IS SATISFACTORY IN ALIGNMENT.
--- NOTE | 2021-01-10 10:11 | P.ANPRN ---
Procedure Note - Anesthesia - Nerve Block Performed Right Adductor Canal Infusion Time Out Performed: Yes (6:47) Date of Procedure: 01/10/21 Procedure Start Time: :47 Procedure Stop Time: 06:55 Location of Patient: PreOp Indication: Acute Post-Operative Pain, Analgesia, Dx/Pain Location (Right Knee), Requested by Surgeon Specifically requested for management of pain by : Andrea Sanderson Sedation Type: Sedate with meaningful contact maintained Preparation: Sterile Prep, Sterile Dressing Position: Supine Catheter: Indwelling Needle Types: Pajunk Needle Gauge: 18 Ultrasound used to visualize needle placement: Yes Ultrasound used to observe medication spread: Yes
--- NOTE | 2021-01-10 10:13 | P.ANPRN ---
Procedure Note - Anesthesia - Nerve Block Performed Right iPack Single Time Out Performed: Yes (6:47) Date of Procedure: 01/10/21 Procedure Start Time: 06:56 Procedure Stop Time: 06:59 Location of Patient: PreOp Indication: Acute Post-Operative Pain, Requested by Surgeon Specifically requested for management of pain by DrDmitri: Andrea Sanderson Sedation Type: Sedate with meaningful contact maintained Preparation: Sterile Prep Position: Supine Catheter: None Needle Types: Pajunk Needle Gauge: 21 Ultrasound used to visualize needle placement: Yes Ultrasound used to observe medication spread: Yes Injectate: 0.5% Ropivacaine (see comment for volume) (20cc of Ropivicaine 0.25%) Blood Aspirated: No Pain Paresthesia on Injection Noted: No Resistance on Injection: Normal Image Stored and Saved: Yes Events: Uneventful and Well Tolerated
[2021-01-10] MEDS: fentaNYL (PF) 50 MCG/ML 2 ML AMP ONE ×2 (10:32→10:45)
[2021-01-10 11:42] VITALS: BP 146/63; PULSE 71; RESP 16
[2021-01-10] MEDS ORDERED: ONDANSETRON 4 MG/2 ML VIAL ONE (12:34)
== END 2021-01-10 14:09 | disposition home health service (06) ==
LOC: OR 05:42
PROVIDERS: ATTEND Orthopaedic Surgery
DX: M17.11 Unilateral primary osteoarthritis, right knee (principal); I10 Essential (primary) hypertension; E03.9 Hypothyroidism, unspecified; K51.90 Ulcerative colitis, unspecified, without complications; Z97.3 Presence of spectacles and contact lenses; Z82.49 Family history of ischemic heart disease and other diseases of the circulatory system; Z87.891 Personal history of nicotine dependence; Z79.890 Hormone replacement therapy; Z79.899 Other long term (current) drug therapy; Z79.1 Long term (current) use of non-steroidal anti-inflammatories (NSAID)
CPT/HCPCS: 97116; 97161; 64999; 64448; 76942; 73560; 27447; C1713; C1776; J2250; J1200; J1100; J0690 ×2; J2405; J2001; J3010; J1170 ×2; J2795 ×2; J0330; J2704; 88300

== ENCOUNTER → 2021-02-20 | Outpatient (CLI) | payer MEDICAID ==
--- NOTE | 2021-02-21 14:22 | MM ---
Reason for exam: screening (asymptomatic). Last mammogram was performed 1 year and 10 months ago. History: Patient is postmenopausal. Family history of breast cancer in sister at age 50. Retro-pectoral implants in both breasts, June 2016. Took hormonal contraceptives for 8 years beginning at age 21. Took estrogen for 3 years. Taking other hormone for 1 year. Physical Findings: A clinical breast exam by your physician is recommended on an annual basis and results should be correlated with mammographic findings. MG 3D Screen Mammo Imp/Cad Bilateral CC, MLO, and ID view(s) were taken. Prior study comparison: April 08, 2019, bilateral MG 3d screen mammo imp/cad. January 29, 2018, bilateral MG 3d screen mammo imp/cad. There are scattered fibroglandular densities. Bilateral breast prothesis. No significant changes when compared with prior studies. ASSESSMENT: Benign, BI-RAD 2 RECOMMENDATION: Routine screening mammogram of both breasts in 1 year.
== END | disposition home or self-care (01) ==
LOC: RADMAMWWP 15:30
PROVIDERS: ATTEND Obstetrics & Gynecology
DX: Z12.31 Encounter for screening mammogram for malignant neoplasm of breast (principal); Z80.3 Family history of malignant neoplasm of breast; Z78.0 Asymptomatic menopausal state
CPT/HCPCS: 77063; 77067

== ENCOUNTER 2021-04-14 14:59 | Day surgery (SDC) | payer MEDICAID ==
[2021-04-13 12:20] VITALS: BMI 26.4
[~2021-04-14 14:59] MED LIST changes: -ACETAMINOPHEN TAB 500 MG TAB PO PRN; -GABAPENTIN 300 MG CAP PO PRN; -MELOXICAM 7.5 MG TAB PO PRN; +Pre Op ABX Message 1 EACH MISC MISCELLANE ONE; -ROPIVACAINE/EPI/CLONIDINE/KET 50 ML SYRINGE MISCELLANE PRN; -TRANEXAMIC ACID 1,000 MG in SODIUM CHLORIDE 0.9% 100 ML IVPB PRN
[2021-04-14] MEDS ORDERED: LACTATED RINGERS 1,000 ML IV ONE (15:24)
[2021-04-14] MEDS ORDERED: ONDANSETRON 4 MG/2 ML VIAL ONE (15:26)
[2021-04-14 15:39] VITALS: TEMP 98.9
[2021-04-14] MEDS ORDERED: MIDAZOLAM 2 MG/2 ML VIAL IVP ONE (15:42)
[2021-04-14] MEDS ORDERED: fentaNYL (PF) 50 MCG/ML 2 ML AMP IVP ONE (15:43)
[2021-04-14] MEDS ORDERED: DEXAMETHASONE SOD PHOSPHATE 4 MG/ML 1 ML VIAL IVP ONE (16:01)
[2021-04-14] MEDS ORDERED: ROPIVACAINE 5 MG/ML 30 ML VIAL ONE (16:15)
[2021-04-14] MEDS ORDERED: SODIUM CHLORIDE 0.9% (PF) 10 ML VIAL ONE (16:15)
[2021-04-14] MEDS ORDERED: LIDOCAINE 1% INJ 10MG/ML (20 ML MDV) ONE (16:15)
[2021-04-14] MEDS ORDERED: KETOROLAC 15 MG/ML 1 ML VIAL ONE (16:15)
[2021-04-14] MEDS ORDERED: PROPOFOL 10 MG/ML 20 ML VIAL IV ONE (16:15)
[2021-04-14] MEDS ORDERED: HYDROmorphone (PF) 1 MG/ML ONE (16:15)
[2021-04-14] MEDS ORDERED: methylPREDNISolone ACETATE 80 MG/ML 1 ML VIAL INTRAARTIC ONE (16:32)
[2021-04-14] MEDS ORDERED: BUPIVACAINE (PF) 0.25% 30 ML VIAL INTRAARTIC ONE (16:32)
--- NOTE | 2021-04-14 16:41 | P.OP ---
Date of Procedure: 04/14/21 Preoperative Diagnosis: Arthrofibrosis status post right total knee Postoperative Diagnosis: Arthrofibrosis status post right total knee Procedure(s) Performed: 1. Manipulation under anesthesia right knee 2. Intra-articular cortisone injection Anesthesia: ZIA Surgeon: Andrea Sanderson Estimated Blood Loss (ml): 0 Pathology: none sent Condition: stable Disposition: PACU Indications for Procedure: This is a 60-year-old female that has had a right total knee arthroplasty [facility] approximately 3 months ago. She's developed arthrofibrosis despite aggressive physical therapy. After discussing the surgical and nonsurgical treatment options with her at length I've recommended manipulation under anesthesia with an intra-articular cortisone injection. Informed consent was obtained. Operative Findings: The operative findings are consistent with arthrofibrosis of the right knee Description of Procedure: The patient was seen and evaluated in the host operative area. The operative site was marked with a skin marker. An abductor canal block as well as I packed block was performed by anesthesia. A timeout was then performed confirming the patient's name surgical site ALLERGIES and consent. A sedate him anesthetic was administered by the anesthesia department. The right knee was then examined under anesthesia. There was found to have full extension and flexion was limited to 105. A gentle manipulation was then performed, with multiple lesions felt to be released. Final flexion was 135. The lateral aspect of the knee was then sterilely prepped with chlorhexidine solution. 80 mg of Depo-Medrol and 2 mL of quarter percent plain Marcaine were injected sterilely into the right knee. Patient was then transported recovery room in stable condition.
[2021-04-14] MEDS ORDERED: traMADol 50 MG TAB PO ONE (17:10)
[2021-04-14 17:14] VITALS: RESP 16
[2021-04-14] MEDS ORDERED: traMADol 50 MG TAB ONE (17:16)
[2021-04-14 17:20] VITALS: BP 162/69; PULSE 81
--- NOTE | 2021-04-14 17:33 | P.ANPRN ---
Procedure Note - Anesthesia - Nerve Block Performed Right Adductor Canal Time Out Performed: Yes (15:42) Date of Procedure: 04/14/21 Procedure Start Time: : Procedure Stop Time: 15: Location of Patient: PreOp Indication: Acute Post-Operative Pain, Requested by Surgeon (Dr Andrea Sanderson) Sedation Type: Sedate with meaningful contact maintained Preparation: Sterile Prep Position: Supine Catheter: None Needle Types: Pajunk Needle Gauge: 21 Ultrasound used to visualize needle placement: Yes Ultrasound used to observe medication spread: Yes Injectate: 0.5% Ropivacaine (see comment for volume) (15cc) Blood Aspirated: No Pain Paresthesia on Injection Noted: No Resistance on Injection: Normal Image Stored and Saved: Yes Events: Uneventful and Well Tolerated
--- NOTE | 2021-04-14 17:35 | P.ANPRN ---
Procedure Note - Anesthesia - Nerve Block Performed Right iPack Time Out Performed: Yes Date of Procedure: 04/14/21 Procedure Start Time: 15:53 Procedure Stop Time: 16:02 Location of Patient: PreOp Indication: Acute Post-Operative Pain, Requested by Surgeon (Dr Andrea Sanderson) Sedation Type: Sedate with meaningful contact maintained Preparation: Sterile Prep Position: Supine Catheter: None Needle Types: Pajunk Needle Gauge: 21 Ultrasound used to visualize needle placement: Yes Ultrasound used to observe medication spread: Yes Injectate: 0.5% Ropivacaine (see comment for volume) (15cc + 5cc PF Normal saline) Blood Aspirated: No Pain Paresthesia on Injection Noted: No Resistance on Injection: Normal Image Stored and Saved: Yes Events: Uneventful and Well Tolerated
== END 2021-04-14 17:40 | disposition home or self-care (01) ==
LOC: OR 14:59
PROVIDERS: ATTEND Orthopaedic Surgery
DX: M24.661 Ankylosis, right knee (principal); Z96.653 Presence of artificial knee joint, bilateral
CPT/HCPCS: 27570; 64447; 64999; 76942; J2250; J1040; J1100; J2405; J2001; J3010; J1170; J2795; J1885; J2704

== ENCOUNTER → 2021-09-20 | Outpatient (CLI) | payer MEDICAID ==
[2021-09-20 23:24] LABS: Immunoglobulin E 7.69 IU/mL (0.00-114.00); Immunoglobulin E 7.88 IU/mL (0.00-114.00)
[2021-09-21 00:06] LABS: C Reactive Protein <0.30 mg/dL (0.00-0.80); Rheumatoid Factor, Qnt <10 IU/mL (0-15)
[2021-09-21 01:07] LABS: Anti-Smith Ab Interp NEGATIVE (NEGATIVE); DNA Double-Stranded NEGATIVE (NEGATIVE)
[2021-09-21 16:43] LABS: Alternaria alternata IgE <0.10 kU/L; Aspergillus fumagatus IgE <0.10 kU/L; Birch IgE <0.10 kU/L; Cat Epith & Dander IgE <0.10 kU/L; Cladosporian herbarum IgE <0.10 kU/L; Clam IgE <0.10 kU/L; Cockroach IgE <0.10 kU/L; Codfish IgE <0.10 kU/L; Dermato. farinae IgE <0.10 kU/L; Dog Dander IgE <0.10 kU/L; Egg White IgE <0.10 kU/L; Elm IgE <0.10 kU/L; Maple (Box Elder) IgE <0.10 kU/L; Oak IgE <0.10 kU/L; Peanut IgE <0.10 kU/L; Ragweed,Common IgE 0.47 kU/L; Red Top (Bentgrass) IgE 4.53 kU/L; Scallop IgE <0.10 kU/L; Shrimp IgE <0.10 kU/L; Soybean IgE <0.10 kU/L; Walnut IgE (Food) <0.10 kU/L
== END | disposition home or self-care (01) ==
LOC: LABWHC1 15:43
PROVIDERS: ATTEND Internal Medicine Critical Care Medicine
DX: I10 Essential (primary) hypertension (principal); E03.9 Hypothyroidism, unspecified; K51.90 Ulcerative colitis, unspecified, without complications
CPT/HCPCS: 36415; 82784; 82785; 85652; 86003; 86038; 86140; 86225; 86235; 86431

== ENCOUNTER → 2023-01-21 | Outpatient (CLI) | payer MEDICAID ==
--- NOTE | 2023-01-22 18:39 | MM ---
Reason for Exam: Screening (asymptomatic). Last mammogram was performed 1 year(s) and 11 month(s) ago. Patient History: Menarche at age 13. First Full-Term at age 29. Postmenopausal. Patient used Estrogen for 3 years. Hormonal Contraceptives for 8 years from age 21 until age 35. 06/2016, Bilateral Implants. Sister had breast cancer, age 50. Sister tested for BRCA1 outcome was negative. Risk Values: Cande 5 year model risk: 3.0%. NCI Lifetime model risk: 13.2%. Prior Study Comparison: 01/29/2018 Bilateral Screening Mammogram, [facility]. 04/08/2019 Bilateral Screening Mammogram, [facility]. 02/20/2021 Bilateral Screening Mammogram, [facility]. Tissue Density: The breast tissue is heterogeneously dense. This may lower the sensitivity of mammography. Findings: Analyzed By CAD. Bilateral retropectoral silicone implants. There is an area of nodular focal asymmetry upper inner quadrant left breast middle depth which appears more defined. This may represent superimposition shadow but further evaluation is recommended. Otherwise, no significant change. Overall Assessment: Incomplete: need additional imaging evaluation, BI-RAD 0 Management: Special View Mammogram of the left breast. Diagnostic Breast Ultrasound of the left breast. Additional views to include spot 3-D CC, 3-D CC rolled lateral, spot 3-D MLO, and 3-D LM views. Targeted left breast ultrasound if any persisting abnormality. [facility] will attempt to contact patient to return for supplemental views and ultrasound if indicated. Electronically signed and approved by: Ashley Rodriguez M.D. Radiologist
== END | disposition home or self-care (01) ==
LOC: RADMAMWWP 14:34
PROVIDERS: ATTEND Obstetrics & Gynecology
DX: Z12.31 Encounter for screening mammogram for malignant neoplasm of breast (principal); Z78.0 Asymptomatic menopausal state; Z80.3 Family history of malignant neoplasm of breast; Z98.82 Breast implant status
CPT/HCPCS: 77063; 77067

== ENCOUNTER → 2023-01-24 | Outpatient (CLI) | payer MEDICAID | END | disposition home or self-care (01) | LOC: RADUSWWP 13:57 | PROVIDERS: ATTEND Obstetrics & Gynecology | DX: Z53.9 Procedure and treatment not carried out, unspecified reason (principal) ==

== ENCOUNTER → 2023-01-24 | Outpatient (CLI) | payer MEDICAID ==
--- NOTE | 2023-01-24 14:44 | MM ---
Reason for Exam: Additional evaluation requested from abnormal screening. Last screening mammogram was performed less than 1 month ago. Patient History: Menarche at age 13. First Full-Term at age 29. Postmenopausal. Patient used Estrogen for 3 years. Hormonal Contraceptives for 8 years from age 21 until age 35. 06/2016, Bilateral Implants. Sister had breast cancer, age 50. Sister tested for BRCA1 outcome was negative. Risk Values: Cande 5 year model risk: 3.0%. NCI Lifetime model risk: 13.2%. Prior Study Comparison: 04/08/2019 Bilateral Screening Mammogram, [facility]. 02/20/2021 Bilateral Screening Mammogram, [facility]. 01/21/2023 Bilateral MG 3D screen mammo imp/cad., [facility]. Tissue Density: Left: There are scattered fibroglandular densities. Findings: Analyzed By CAD. The area of concern involving the left breast best appreciated on MLO implant displaced views compresses out on spot compression 3-D imaging. No new suspicious masses, calcifications or distortions.The area of concern involving the left breast best appreciated on MLO implant displaced views compresses out on spot compression 3-D imaging. No new suspicious masses, calcifications or distortions. Left breast implant appears intact. Overall Assessment: Benign, BI-RAD 2 Management: Screening Mammogram of both breasts in 1 year. Results were given to the patient verbally at the time of exam. Patient should continue monthly self-breast exams. A clinical breast exam by your physician is recommended on an annual basis. This exam should not preclude additional follow-up of suspicious palpable abnormalities. Note on Cande scores and lifetime risk: 1. A Cande score greater than 3% is considered moderate risk. If this is the case, consider specialist referral to assess eligibility for a risk reducing agent. 2. If overall lifetime risk for the development of breast cancer is 20% or higher, the patient may qualify for future screening with alternating mammogram and breast MRI. Electronically signed and approved by: Sincere Tomlinson DO
== END | disposition home or self-care (01) ==
LOC: RADMAMWWP 13:54
PROVIDERS: ATTEND Obstetrics & Gynecology
DX: R92.322 Mammographic fibroglandular density, left breast (principal); Z78.0 Asymptomatic menopausal state; Z80.3 Family history of malignant neoplasm of breast; Z85.3 Personal history of malignant neoplasm of breast
CPT/HCPCS: 77061; 77065

== ENCOUNTER → 2023-01-24 | Outpatient (CLI) | payer MEDICAID ==
[2023-01-24 15:16] VITALS: BP 117/76; PULSE 77; RESP 16; TEMP 98
--- NOTE | 2023-01-24 15:37 | P.GSHP ---
History of Present Illness H&P Date: 01/24/23 Chief Complaint: abnormal left breast mammogram Mimi is a 62 year old female seen in consultation regarding a radiographic abnormality in her left breast. She had a bilateral screening mammogram on 01-21-23 which was reviewed with Dr. Fuller. Additional views of the left breast were recommended. This was done on 01-24-23. They were reviewed in person with Dr. Tomlinson. The area of concern compressed out. This was felt to be BIRAD 2 and repeat mammogram in 1 year recommended. He does not feel any new lumps masses or nodules of concern. She has bilateral breast implants they were placed approximately 7 years ago. They are subpectoral they are silicone. She has not had any other surgery on her breast. Does not have any recent trauma or infection in her breast. 5-year-old model risk: 3% NCI lifetime risk 13.2% Caffeine: 6 cups of coffee/day nicotine:teenager chocolate: occasional BCP: 22 to 26 hormones: bioT, pellets from DR. Gu every 3 to 4 months, she has been getting these for 3 years progesterone [facility] Family History: sister: breast cancer diagnosed at 50 Hormonal History: menarche: 13 , breast fed: yes, age at first : 29 menopause: ablation at 52 hormones: as above Surgical history: Uterine ablation breast implants Medical history: Ulcerative colitis 40 years HTN SociaL History: Nicotine: Negative Alcohol: One a day Drugs: - Constitutional Constitutional: Denies chills, Denies fever - EENT Eyes: denies blurred vision, denies pain Ears: deny: decreased hearing, tinnitus Ears, nose, mouth and throat: Denies headache, Denies sore throat - Breasts Breasts: bilateral: as per HPI - Cardiovascular Cardiovascular: Denies chest pain, Denies shortness of breath - Respiratory Respiratory: Denies cough, Denies 7 - Gastrointestinal Gastrointestinal: Denies abdominal pain, Denies diarrhea, Denies nausea, Denies vomiting - Genitourinary (Female) Genitourinary: Denies dysuria, Denies hematuria - Menstruation Menstruation: Reports postmenopausal - Musculoskeletal Musculoskeletal: Denies myalgias - Integumentary Integumentary: Denies pruritus, Denies rash - Neurological Neurological: Denies numbness, Denies weakness - Psychiatric Psychiatric: Denies anxiety, Denies depression - Endocrine Endocrine: Denies fatigue, Denies weight change - Hematologic/Lymphatic Comment: none - Allergic/Immunologic Allergic/Immunologic: Reports as per HPI Past Medical History Past Medical History: Hypertension, Thyroid Disorder Additional Past Medical History / Comment(s): ULCERATIVE COLITIS. History of Any Multi-Drug Resistant Organisms: None Reported Past Surgical History: Section, Joint Replacement, Tonsillectomy, Uterine Ablation Additional Past Surgical History / Comment(s): Right total knee replacement. Past Anesthesia/Blood Transfusion Reactions: Motion Sickness, Postoperative Nausea & Vomiting (PONV) Additional Past Anesthesia/Blood Transfusion Reaction / Comment(s): Sister PONV. Past Psychological History: No Psychological Hx Reported Smoking Status: Former smoker Past Alcohol Use History: Occasional Additional Past Alcohol Use History / Comment(s): Smoked occasionally as a teenager. Past Drug Use History: None Reported - Past Family History Mother Family Medical History: Cancer Sister(s) Family Medical History: Cancer Additional Family Medical History / Comment(s): Two sisters had cancer. Medications and Allergies Home Medications Medication Instructions Recorded Confirmed Type Progesterone, Micronized 200 mg PO HS 05/10/17 01/24/23 History [Progesterone] Entyvio 300 mg IV Q56D 05/03/20 01/24/23 History Indapamide [Lozol] 2.5 mg PO DAILY 05/03/20 01/24/23 History Levothyroxine Sodium [Synthroid] 75 mcg PO QAM 05/03/20 01/24/23 History amLODIPine BESYLATE 5 mg PO QAM 05/03/20 01/24/23 History Olmesartan Medoxomil ? Dose 1 tab PO QAM 05/01/22 01/24/23 History Allergies Allergy/AdvReac Type Severity Reaction Status Date / Time codeine AdvReac Itching, SANCHEZ Verified 01/24/23 15:03 meperidine HCl [From Demerol] AdvReac Nausea & Verified 01/24/23 15:03 Vomiting Surgical - Exam Vital Signs Temp Pulse Resp BP 98.0 F 77 16 117/76 01/24/23 15:04 01/24/23 15:04 01/24/23 15:04 01/24/23 15:04 - General no distress - Eyes normal ocular movement - ENT no hearing loss, no congestion - Neck trachea midline - Respiratory normal respiratory effort, clear to auscultation - Cardiovascular Rhythm: regular Heart Sounds: normal: S1, S2 - Abdomen Abdomen: soft, non tender, no guarding, no rigid, no rebound - Integumentary normal turgor - Neurologic no disoriented, no combative - Musculoskeletal normal gait, normal posture - Psychiatric oriented to time, oriented to person, oriented to place, speech is normal, memory intact Breast Exam: BRA: 38D Inspection: Bilateral grade 1/2 ptosis Palpation: Right breast: Multi-positional exam no dominant masses or nodules of concern Right axilla: No adenopathy of concern Left breast: Multiple positional exam with particular attention to the upper outer area no dominant masses or nodules of concern Left axilla: No adenopathy of concern Results Bilateral mammogram reviewed with radiologist. Concern in the left breast compresses out Assessment and Plan Assessment: Impression: Radiographic abnormality left breast compresses out and diagnostic mammogram Bilateral mammogram [id number] Plan: Repeat bilateral mammogram in 1 year We have discussed her hormone replacement therapy and that it may cause changes in the breast parenchyma at this time she is going to continue it Close surveillance with repeat examination 1 year CC: Dr. Gu, Dr. Plunkett
== END ==
LOC: WWCWWP 13:59
PROVIDERS: ATTEND Surgery
DX: R92.8 Other abnormal and inconclusive findings on diagnostic imaging of breast (principal); E07.9 Disorder of thyroid, unspecified; I10 Essential (primary) hypertension; Z88.5 Allergy status to narcotic agent; Z88.8 Allergy status to other drugs, medicaments and biological substances; Z87.891 Personal history of nicotine dependence; Z80.3 Family history of malignant neoplasm of breast; Z98.82 Breast implant status; Z79.890 Hormone replacement therapy

== ENCOUNTER → 2023-04-03 | Outpatient (CLI) | payer MEDICAID ==
--- NOTE | 2023-04-03 18:29 | BD ---
EXAMINATION TYPE: Axial Bone Density DATE OF EXAM: 04/03/2023 CLINICAL HISTORY: 62 years old Female. ICD-10 CODE: Z78.0 POST MENOPAUSAL Height: 66 Weight: 166.2 FRAX RISK QUESTIONS: Alcohol (3 or more units per day): no Family History (Parent hip fracture): no Glucocorticoids (More than 3mos): no (Ex: prednisone, prednisolone, methylprednisolone, dexamethasone, and hydrocortisone). History of Fracture in Adulthood: no Secondary Osteoporosis: 1. Type 1 Diabetes: no 2. Hyperthyroidism: no 3. Menopause before 45: no 4. Malnutrition: yes 5. Chronic liver disease: no Rheumatoid Arthritis: no Current Tobacco Use: no RISK FACTORS HISTORY OF: Surgery to Spine/Hip(right/left)/Wrist (right/left): no MEDICATIONS: Thyroid Medications: synthroid How Lon years Additional History: EXAM MEASUREMENTS: Bone mineral densitometry was performed using the [employer] System. Bone mineral density as measured about the Lumbar spine is: ----- L1-L4(G/cm2): 1.417 T Score Values are as follows: ----- L1: 0.8 ----- L2: 1.3 ----- L3: 2.7 ----- L4: 2.5 ----- L1-L4: 2.0 Z Score Values are as follows: ----- L1: 1.8 ----- L2: 2.4 ----- L3: 3.7 ----- L4: 3.6 ----- L1-L4: 3.0 Bone mineral density : baseline Bone mineral density about the R hip (g/cm2): 1.127 Bone mineral density about the L hip (g/cm2): 1.229 T Score values are as follows: -----R Neck: 0.0 -----L Neck: 0.4 -----R Total: 0.9 -----L Total: 1.8 Z Score values are as follows: -----R Neck: 1.1 -----L Neck: 1.6 -----R Total: 1.8 -----L Total: 2.6 Bone mineral density : baseline FRAX%s: The graph provided illustrates a 6.4% chance for a major osteoporotic fx and a 0.2% chance fo r the hips probability for fx in 10 years time. IMPRESSION: Normal (Values between +1 and -1 indicate normal bone mass). Consider repeating this study in 5 year s or sooner if there is some new clinical indication. NOTE: T-SCORE=SD OF THE YOUNG ADULT MEAN.
== END | disposition home or self-care (01) ==
LOC: RADBDWWP 12:42
PROVIDERS: ATTEND Family Medicine
DX: Z78.0 Asymptomatic menopausal state (principal)
CPT/HCPCS: 77080

== ENCOUNTER → 2023-07-24 | Outpatient (CLI) | payer MEDICAID ==
--- NOTE | 2023-07-24 09:00 | US ---
EXAMINATION TYPE: US renal artery duplex complete DATE OF EXAM: 07/24/2023 COMPARISON: CT abdomen pelvis 06/27/2015 CLINICAL INDICATION: Female, 62 years old with history of R79.89 OTHER SPECIFIED ABNORMAL FINDINGS O I10 HTN; Patient denies any signs or symptoms at this time MEASUREMENTS: RENAL SIZE: Right Kidney: 8.8 x 5.4 x 5.5 cm Left Kidney: 9.5 x 5.1 x 5.2 cm Right Kidney: wnl Left Kidney: wnl Abd Aorta: wnl RESISTANCE INDEX Right: 0.67 Left: 0.76 RA/AO RATIO (< 3.5 ) Right: 0.9 Left: 0.9 RENAL ARTERY VELOCITY ( < 180 cm/s) Right: 79 Left: 76 Adult Manager Notes: Unremarkable exam Both kidneys appear unremarkable without evidence of focal lesion, nephrolithiasis, or hydronephrosis . IMPRESSION: No ultrasound evidence for renal artery stenosis.
[2023-07-24 15:25] LABS: BUN/Creat Ratio 29.22 Ratio (12.00-20.00); Blood Urea Nitrogen 26.3 mg/dL (9.0-27.0); Carbon Dioxide 27.7 mmol/L (21.6-31.8); Chloride 102 mmol/L (96-109); Chol/HDL Ratio 3.03 Ratio; Glucose 103 mg/dL (70-110); LDL Cholesterol,Calculated 157.1 mg/dL (0.0-131.0); Potassium 4.7 mmol/L (3.5-5.5); Sodium 140 mmol/L (135-145); VLDL Calculation 10.42 mg/dL (5.00-40.00)
== END | disposition home or self-care (01) ==
LOC: RADUSWWP 07:08
PROVIDERS: ATTEND Family Medicine
DX: R79.89 Other specified abnormal findings of blood chemistry (principal); I12.9 Hypertensive chronic kidney disease with stage 1 through stage 4 chronic kidney disease, or unspecified chronic kidney disease; E78.5 Hyperlipidemia, unspecified; N18.2 Chronic kidney disease, stage 2 (mild)
CPT/HCPCS: 80048; 80061; 93975

== ENCOUNTER → 2023-09-23 | Outpatient (CLI) | payer MEDICAID ==
[2023-09-23 21:03] LABS: Basophils # (A) 0.06 X 10*3/uL (0.00-0.10); Basophils % (A) 0.8 %; Eosinophils # (A) 0.27 X 10*3/uL (0.04-0.35); Eosinophils % (A) 3.4 %; HGB 12.2 g/dL (12.0-15.0); Lymphocytes # (A) 2.23 X 10*3/uL (0.90-5.00); Lymphocytes % (A) 28.4 %; MCH 29.7 pg (27.0-32.0); Mean Platelet Volume 8.8 FL (9.5-12.2); Monocytes # (A) 0.82 X 10*3/uL (0.20-1.00); Monocytes % (A) 10.4 %; NRBC Per 100 WBC 0 X 10*3/uL (0.00-0.01); Neutrophils # (A) 4.46 X 10*3/uL (1.80-7.70); Neutrophils % (A) 56.7 %; Platelet Count 384 X 10*3/uL (140-440); RBC 4.11 X 10*6/uL (4.10-5.20); RDW 14.2 % (11.5-14.5); WBC 7.86 X 10*3/uL (4.50-10.00)
[2023-09-23 21:16] LABS: Chol/HDL Ratio 2.37 Ratio; Estradiol 30.6 pg/mL; LDL Cholesterol,Calculated 105.2 mg/dL (0.0-131.0); T4, Free (Free Thyroxine) 1.21 ng/dL (0.80-1.80); VLDL Calculation 7.62 mg/dL (5.00-40.00)
[2023-09-23 21:30] LABS: ALT 33 U/L (8-44); AST 36 U/L (13-35); Albumin 4.6 g/dL (3.8-4.9); Albumin/Globulin Ratio 2.09 Ratio (1.60-3.17); Alkaline Phosphatase 85 U/L (41-126); Blood Urea Nitrogen 20.3 mg/dL (9.0-27.0); Calcium 9.2 mg/dL (8.7-10.3); Carbon Dioxide 24.7 mmol/L (21.6-31.8); Chloride 106 mmol/L (96-109); Globulin 2.2 g/dL (1.6-3.3); Glucose 92 mg/dL (70-110); Potassium 4.3 mmol/L (3.5-5.5); Sodium 142 mmol/L (135-145); Total Bilirubin 0.3 mg/dL (0.3-1.2); Total Protein 6.8 g/dL (6.2-8.2)
[2023-09-23 22:51] LABS: Follicle Stimulating Hormone 35.6 mIU/mL
== END | disposition home or self-care (01) ==
LOC: LABWHC1 15:40
PROVIDERS: ATTEND Obstetrics & Gynecology
DX: E78.5 Hyperlipidemia, unspecified (principal); N18.2 Chronic kidney disease, stage 2 (mild); K51.90 Ulcerative colitis, unspecified, without complications; N95.1 Menopausal and female climacteric states
CPT/HCPCS: 36415; 80053; 80061; 82670; 83001; 83036; 84144; 84403; 84439; 84443; 84481; 85025

== ENCOUNTER → 2024-02-29 | Outpatient (CLI) | payer MEDICAID ==
[2024-03-01 07:36] LABS: BUN/Creat Ratio 21.78 Ratio (12.00-20.00); Blood Urea Nitrogen 19.6 mg/dL (9.0-27.0); Calcium 9.2 mg/dL (8.7-10.3); Carbon Dioxide 25.7 mmol/L (21.6-31.8); Chloride 106 mmol/L (96-109); Estradiol 27.8 pg/mL; Glucose 98 mg/dL (70-110); Potassium 4.5 mmol/L (3.5-5.5); Sodium 142 mmol/L (135-145); T4, Free (Free Thyroxine) 1.04 ng/dL (0.80-1.80)
[2024-03-01 07:44] LABS: HCT 37.8 % (37.2-46.3); HGB 12.4 g/dL (12.0-15.0); MCH 29.3 pg (27.0-32.0); MCHC 32.8 g/dL (32.0-37.0); MCV 89.4 FL (80.0-97.0); NRBC Per 100 WBC 0 X 10*3/uL (0.00-0.01); Platelet Count 373 X 10*3/uL (140-440); RBC 4.23 X 10*6/uL (4.10-5.20); RDW 14.4 % (11.5-14.5); WBC 6.92 X 10*3/uL (4.50-10.00)
== END | disposition home or self-care (01) ==
LOC: LABWHC1 08:51
PROVIDERS: ATTEND Family Medicine
DX: I10 Essential (primary) hypertension (principal); Z79.890 Hormone replacement therapy
CPT/HCPCS: 36415; 80048; 82306; 82670; 83036; 84403; 84439; 84443; 85027

== ENCOUNTER → 2024-06-08 | Outpatient (CLI) | payer MEDICAID ==
--- NOTE | 2024-06-08 15:54 | MM ---
Reason for Exam: Screening (asymptomatic). Last mammogram was performed 1 year(s) and 4 month(s) ago. Patient History: Menarche at age 13. First Full-Term at age 29. Postmenopausal. Patient used Estrogen for 3 years. Hormonal Contraceptives for 8 years from age 21 until age 35. 06/2016, Bilateral Implants. Sister had breast cancer, age 50. Sister tested for BRCA1 outcome was negative. Risk Values: Cande 5 year model risk: 3.1%. NCI Lifetime model risk: 12.8%. Prior Study Comparison: 02/20/2021 Bilateral Screening Mammogram, [facility]. 01/21/2023 Bilateral MG 3D screen mammo imp/cad., [facility]. 01/24/2023 Left MG 3D work up w/cad w/imp LT, [facility]. Tissue Density: The breasts are heterogeneously dense, which may obscure small masses. Findings: Analyzed By CAD. There is no suspicious group of microcalcifications. Stable asymmetric density along the margin the right unchanged dating back to 2000. Benign-appearing calcification right breast. There is an area of nodular density central lateral RIGHT breast most likely related superimposed tissue. Would recommend spot compression and true lateral view for confirmation. Overall Assessment: Incomplete: need additional imaging evaluation, BI-RAD 0 Management: Special View Mammogram of the right breast. . Patient should continue monthly self-breast exams. A clinical breast exam by your physician is recommended on an annual basis. This exam should not preclude additional follow-up of suspicious palpable abnormalities. Note on Cande scores and lifetime risk: 1. A Cande score greater than 3% is considered moderate risk. If this is the case, consider specialist referral to assess eligibility for a risk reducing agent. 2. If overall lifetime risk for the development of breast cancer is 20% or higher, the patient may qualify for future screening with alternating mammogram and breast MRI. [facility], , 06/08/2024 3:52 PM. Electronically signed and approved by: Anuel Almeida M.D. Radiologis
== END | disposition home or self-care (01) ==
LOC: RADMAMWWP 15:00
PROVIDERS: ATTEND Obstetrics & Gynecology
DX: Z12.31 Encounter for screening mammogram for malignant neoplasm of breast (principal); R92.333 Mammographic heterogeneous density, bilateral breasts; Z78.0 Asymptomatic menopausal state; Z80.3 Family history of malignant neoplasm of breast; Z98.82 Breast implant status
CPT/HCPCS: 77063; 77067

== ENCOUNTER → 2024-06-09 | Outpatient (CLI) | payer MEDICAID ==
--- NOTE | 2024-06-18 13:40 | MM ---
Reason for Exam: Additional evaluation requested from abnormal screening. Last screening mammogram was performed less than 1 month ago. Patient History: Menarche at age 13. First Full-Term at age 29. Postmenopausal. Patient used Estrogen for 3 years. Hormonal Contraceptives for 8 years from age 21 until age 35. 06/2016, Bilateral Implants. Sister had breast cancer, age 50. Sister tested for BRCA1 outcome was negative. Risk Values: Cande 5 year model risk: 3.1%. NCI Lifetime model risk: 12.8%. Tissue Density: Right: The breasts are heterogeneously dense, which may obscure small masses. Findings: Analyzed By CAD. There is dispersion of the density upon compression and the lateral view demonstrates stenosis nodes in the axilla. Overall Assessment: Benign, BI-RAD 2 Management: Diagnostic Mammogram of the right breast in 6 months. . Results were given to the patient verbally at the time of exam. Patient should continue monthly self-breast exams. A clinical breast exam by your physician is recommended on an annual basis. This exam should not preclude additional follow-up of suspicious palpable abnormalities. Note on Cande scores and lifetime risk: 1. A Cande score greater than 3% is considered moderate risk. If this is the case, consider specialist referral to assess eligibility for a risk reducing agent. 2. If overall lifetime risk for the development of breast cancer is 20% or higher, the patient may qualify for future screening with alternating mammogram and breast MRI. [facility], , 06/09/2024 2:30 PM. Electronically signed and approved by: Anuel Almeida M.D. Radiologis
== END | disposition home or self-care (01) ==
LOC: RADMAMWWP 14:06
PROVIDERS: ATTEND Obstetrics & Gynecology
DX: R92.8 Other abnormal and inconclusive findings on diagnostic imaging of breast (principal); R92.331 Mammographic heterogeneous density, right breast; Z78.0 Asymptomatic menopausal state; Z92.0 Personal history of contraception; Z80.3 Family history of malignant neoplasm of breast
CPT/HCPCS: 77061; 77065